=== PATIENT | female | born 1970 | race Caucasian/White ===

== ENCOUNTER 2017-01-21 21:22 | Emergency (ER) | payer MEDICAID ==
[~2017-01-21] VITALS: Ht 162.6 cm; Wt 70.8 kg
[~2017-01-21 21:22] MED LIST: CLON1TAB PO; PAX20 PO
[2017-01-21 21:34] VITALS: BP 138/81
--- NOTE | 2017-01-21 22:05 | NUR ---
46Y/F PRESENTS TO ER C/O SOB, CHEST PAIN,AND ANXIETY. PMH ANXIETY , NKA. PT [place] AND BEGAN TO FEEL 'SCARED' FROM THE READING. PT TOOK HOME RX W/ NO RELIEF AND WORSENING PAIN. PT HAS EPIGASTRIC PAIN, NON RADIATING, X1 DAY. PT DENIES TAUMA, PT FEELS AXIOUS. PT IN BED, AT BEDSIDE, ER MD NOTIFIED OF PT STATUS.
[2017-01-21] MEDS: LORazepam 1 MG TAB PO ONE (22:35)
[2017-01-21 23:22] VITALS: BP 130/78
== END 2017-01-21 23:22 | disposition home or self-care (01) ==
LOC: MED 21:22
DX: F41.9 Anxiety disorder, unspecified (principal); R03.0 Elevated blood-pressure reading, without diagnosis of hypertension; J45.909 Unspecified asthma, uncomplicated
CPT/HCPCS: 81002; 81025; 99284

== ENCOUNTER 2017-04-08 15:31 | Emergency (ER) | payer SELFPAY ==
[~2017-04-08] VITALS: Ht 152.4 cm; Wt 68.5 kg
[2017-04-08 15:38] VITALS: BP 125/80
--- NOTE | 2017-04-08 15:47 | NUR ---
PT AMBULATED TO BED 2.
--- NOTE | 2017-04-08 15:50 | NUR ---
47F BIB FAMILY C/O ANXIETY AND HEADACHE, RADIATES TO BL SHOULDERS, PRESSURE, 10/10 X 15 DAYS; PT STATES NO BLURRY VISION OR VISION CHANGES AT THIS TIME; PT STATES NO RECENT TRAUMA OR INJURY TO HEAD AT THIS TIME; PT AA&OX4, PERRLA, BL LUNG SOUNDS CLEAR, RR EVEN/UNLABORED, SKIN IS WARM/DRY/INTACT WITH EVEN AND STEADY GAIT; PT STATES NO N/V/D AT THIS TIME; PT RESTING IN BED WITH HOB ELEVATED AND IN LOWEST POSITION; POSITIONED FOR COMFORT; ER MD MADE AWARE OF STATUS.WILL CONTINUE TO MONITOR.
[2017-04-08 17:08] LABS: APPEARANCE,URINE CLEAR (CLEAR); BILIRUBIN,URINE NEGATIVE (NEGATIVE); BLOOD, URINE TRACE-I (NEGATIVE); COLOR,URINE YELLOW (YELLOW); LEUKOCYTE ESTERASE ,URINE NEGATIVE (NEGATIVE); NITRITE, URINE NEGATIVE (NEGATIVE); PH,URINE 6.5 (5.0-9.0); UGLUCOSE NEGATIVE (NEGATIVE)
[2017-04-08] MEDS: KETOROLAC 60 MG/2 ML VIAL IM ONE (17:17)
[2017-04-08 18:14] VITALS: BP 121/78
--- NOTE | 2017-04-08 18:14 | NUR ---
Patient discharged with v/s stable by ER MD Dr. Blake. Written and verbal after care instructions given and explained. Patient verbalized understanding. Ambulatory with steady gait. All questions addressed prior to discharge. Advised to follow up with PMD.
== END 2017-04-08 18:14 | disposition home or self-care (01) ==
LOC: MED 15:31
DX: G44.209 Tension-type headache, unspecified, not intractable (principal); J45.909 Unspecified asthma, uncomplicated; Z79.899 Other long term (current) drug therapy
CPT/HCPCS: 81003; 96372; 99283; J1885; C1758

== ENCOUNTER 2017-07-23 00:40 | Emergency (ER) | payer SELFPAY ==
[~2017-07-23] VITALS: Ht 152.4 cm; Wt 68.0 kg
[2017-07-23 00:41] VITALS: BP 131/83
--- NOTE | 2017-07-23 00:55 | NUR ---
TO ER BED 2
--- NOTE | 2017-07-23 00:57 | NUR ---
47 YO F TO ER WITH C/O OF HEADACHE AND EIPGASTRIC PAIN X 2DAYS. PT STATES 10/10 HEADACH PAIN AND 4/10 EPIGASTRIC PAIN. PT STATES PRESSURE. PERRLA, DENIES N/V/D; BS PRESENT AND ACTIVE, SKIN IS PINK/WARM/DRY; AAOX4 WITH EVEN AND STEADY GAIT; LUNGS CLEAR BL; HR EVEN AND REGULAR; PT DENIES ANY FEVER, CP, SOB, OR COUGH AT THIS TIME; PATIENT STATES PAIN OF 10/10 AT THIS TIME; VSS; PATIENT POSITIONED FOR COMFORT; HOB ELEVATED; BEDRAILS UP X2; BED DOWN. ER MD MADE AWARE OF PT STATUS.
--- NOTE | 2017-07-23 01:20 | NUR ---
PT APPERS TO BE SLEEPING IN NO APPARENT DISTRESS, WITH FAMILY AT BEDSIDE. WILL CONTINUE TO MONITOR.
[2017-07-23] MEDS: NACL 0.9% 1,000 ML IV ONE (01:31)
[2017-07-23 01:38] LABS: BASOPHILS % (AUTO) 0.6 % (0.0-2.0); EOSINOPHILS # (AUTO) 0.1 K/uL (0-0.4); EOSINOPHILS % (AUTO) 1.7 % (0.0-4.0); HEMATOCRIT 31.2 % (36-48); HEMOGLOBIN 9.4 g/dL (12.0-16.0); LYMPHOCYTES # (AUTO) 1.6 K/uL (2.5-16.5); LYMPHOCYTES % (AUTO) 25.6 % (20.5-51.1); MEAN CORPUSCULAR HEMOGLOBIN 20 pg (27-31); MEAN CORPUSCULAR HGB CONC 30 g/dL (33-37); MEAN CORPUSCULAR VOLUME 66.5 fL (80-94); MONOCYTES # (AUTO) 0.5 K/uL (0.8-1.0); MONOCYTES % (AUTO) 8.4 % (1.7-9.3); NEUTROPHILS # (AUTO) 3.9 K/uL (1.8-7.7); NEUTROPHILS % (AUTO) 63.7 % (42.2-75.2); PLATELET COUNT (AUTO) 296 K/uL (140-450); RED CELL DISTRIBUTION WIDTH 19.1 % (11.6-13.7); WHITE BLOOD COUNT (AUTO) 6.2 K/uL (4.8-10.8)
[2017-07-23 01:39] LABS: APPEARANCE,URINE CLEAR (CLEAR); BILIRUBIN,URINE NEGATIVE (NEGATIVE); BLOOD, URINE 2+ (NEGATIVE); COLOR,URINE YELLOW (YELLOW); LEUKOCYTE ESTERASE ,URINE NEGATIVE (NEGATIVE); NITRITE, URINE NEGATIVE (NEGATIVE); UGLUCOSE NEGATIVE (NEGATIVE)
[2017-07-23 01:55] LABS: ALBUMIN 3.1 g/dL (3.4-5.0); ANION GAP 9.9 (8-16); CARBON DIOXIDE 27.9 mmol/L (21-32); CREATININE 0.6 mg/dL (0.6-1.3); POTASSIUM 3.8 mmol/L (3.5-5.1); TOTAL BILIRUBIN 0.4 mg/dL (0.0-1.0)
[2017-07-23 01:58] LABS: RBC,URINE 0-5 (RARE) /HPF (0-5); URINE AMORPHOUS URATE 1+ /HPF (None Seen); WBC,URINE 0-5 (RARE) /HPF (0-5)
--- NOTE | 2017-07-23 02:55 | NUR ---
ULTRASOUND AT BEDSIDE
--- NOTE | 2017-07-23 03:25 | NUR ---
ALL RESULTS BACK AND NOTED BY ERMD AND FOR D/C.
[2017-07-23 03:39] VITALS: BP 121/78
--- NOTE | 2017-07-23 03:39 | NUR ---
Patient discharged with v/s stable. Written and verbal after care instructions given and explained, BY DR. AG. Patient verbalized understanding. Ambulatory with steady gait. All questions addressed prior to discharge. Advised to follow up with PMD.
== END 2017-07-23 03:35 | disposition home or self-care (01) ==
LOC: MED 00:40
DX: R07.9 Chest pain, unspecified (principal); K30 Functional dyspepsia; F41.9 Anxiety disorder, unspecified
CPT/HCPCS: 36415; 76705; 80053; 81001; 81025; 82150; 83690; 85025; 99285; J7030; Q0092; 96360

== ENCOUNTER 2017-11-24 21:53 | Emergency (ER) | payer SELFPAY ==
[~2017-11-24] VITALS: Ht 152.4 cm; Wt 68.0 kg
[2017-11-24 21:55] VITALS: BP 123/80
--- NOTE | 2017-11-24 22:00 | NUR ---
TO LOBBY A/W BED, ZAMZAM JEREZ NOTED
--- NOTE | 2017-11-24 22:10 | NUR ---
PATIENT PRESENTS TO ED WITH C/O EPIGASTRIC PAIN X 2 DAYS WITH N/V. ABDOMEN IS SOFT, NON TENDER. SKIN IS PINK/WARM/DRY; AAOX4 WITH EVEN AND STEADY GAIT; LUNGS CLEAR BL; HR EVEN AND REGULAR; PT DENIES ANY FEVER, CP, SOB, OR COUGH AT THIS TIME; PATIENT STATES PAIN OF 8/10 AT THIS TIME; VSS; PATIENT POSITIONED FOR COMFORT; HOB ELEVATED; BEDRAILS UP X2; BED DOWN.
--- NOTE | 2017-11-25 00:10 | NUR ---
PT RESTING WITH VSS. WILL CONITINUE TO MONITOR.
[2017-11-25] MEDS ORDERED: ONDANSETRON 4 MG ODT PO ONE (00:25)
[2017-11-25] MEDS ORDERED: DICYCLOMINE HCL LIQUID 20 MG, ALUMINUM HYD/MAG/SIMETHICONE 30 ML, LIDOCAINE VISCOUS 2% ... PO ONE ×3 (00:25)
[2017-11-25] MEDS ORDERED: FAMOTIDINE 20 MG TAB PO ONE (00:25)
[2017-11-25 01:29] LABS: HEMOGLOBIN 9.1 g/dL (12.0-16.0); MEAN CORPUSCULAR HEMOGLOBIN 20 pg (27-31)
--- NOTE | 2017-11-25 01:39 | NUR ---
AWAITING DISCHARGE ORDERS AT THIS TIME.
[2017-11-25 01:40] LABS: MEAN CORPUSCULAR HGB CONC 30 g/dL (33-37); PLATELET COUNT (AUTO) 279 K/uL (140-450); RED BLOOD CELL COUNT(AUTO) 4.62 MIL/uL (4.20-5.40); RED CELL DISTRIBUTION WIDTH 19.9 % (11.6-13.7); WHITE BLOOD COUNT (AUTO) 13.6 K/uL (4.8-10.8)
[2017-11-25 01:42] LABS: CARBON DIOXIDE 27.8 mmol/L (21-32); CREATININE 0.7 mg/dL (0.6-1.3); POTASSIUM 3.8 mmol/L (3.5-5.1)
[2017-11-25 01:49] LABS: ALBUMIN 3.3 g/dL (3.4-5.0); TOTAL BILIRUBIN 0.3 mg/dL (0.0-1.0)
[2017-11-25 01:52] LABS: LYMPHOCYTES % (MANUAL) 9 % (20-46); MONOCYTES % (MANUAL) 4 % (5-12)
--- NOTE | 2017-11-25 01:52 | NUR ---
Patient discharged with v/s stable. Written and verbal after care instructions given and explained. Patient alert, oriented and verbalized understanding of instructions. Ambulatory with steady gait. All questions addressed prior to discharge. ID band removed. Patient advised to follow up with PMD. Rx of PEPCID, REGLAN given. Patient educated on indication of medication including possible reaction and side effects. Opportunity to ask questions provided and answered.
[2017-11-25 02:08] VITALS: BP 109/65
[2017-11-25 04:01] LABS: APPEARANCE,URINE CLEAR (CLEAR); BILIRUBIN,URINE NEGATIVE (NEGATIVE); BLOOD, URINE 2+ (NEGATIVE); COLOR,URINE YELLOW (YELLOW); LEUKOCYTE ESTERASE ,URINE NEGATIVE (NEGATIVE); NITRITE, URINE NEGATIVE (NEGATIVE); PH,URINE 6.5 (5.0-9.0); UGLUCOSE NEGATIVE (NEGATIVE)
[2017-11-25 04:19] LABS: RBC,URINE 0-5 (RARE) /HPF (0-5); WBC,URINE 0-5 (RARE) /HPF (0-5)
== END 2017-11-25 01:52 | disposition home or self-care (01) ==
LOC: MED 21:53
DX: K21.9 Gastro-esophageal reflux disease without esophagitis (principal); R11.2 Nausea with vomiting, unspecified; Z79.899 Other long term (current) drug therapy
CPT/HCPCS: 36415; 80053; 81001; 83690; 85025; 99284; S0119

== ENCOUNTER 2019-05-27 00:59 | Emergency (ER) | payer SELFPAY ==
[~2019-05-27] VITALS: Ht 165.1 cm; Wt 65.8 kg
[2019-05-27 01:03] VITALS: BP 127/66
--- NOTE | 2019-05-27 01:08 | NUR ---
PT TAKEN TO BED 7
--- NOTE | 2019-05-27 01:12 | NUR ---
CHEST PAIN UNPON INSPIRATION AND EXPIRATION IS NON-RADIATING; CHEST PAIN IS FELT WHEN PT COUGHS.
--- NOTE | 2019-05-27 01:12 | NUR ---
49 Y/O FEMALE C/O NONPRODUCTIVE DRY COUGH X 3 DAYS. PT DENIES ANY TRAUMA. PT DENIES SOB/DIFFICULTY BREATHING; AIRWAY PATENT, LUNG SOUND CLEAR BILATERALLY UPON INSPIRATION AND EXPIRATION; RR 18 EVEN AND UNLABORED AND O2 SAT 99% ROOM AIR. UPON INSPIRATION/EXPIRATION PT STATES SHE HAS CHEST PAIN AND UPPER BILATERAL SHOULDER PAIN 9/10. UPON AUSCULATION OF HEART, S1/S2 PRESENT, CAP REFILL < 3 SECS. PT HAS NOT TAKEN ANY OTC FOR PAIN. DENIES N/V/D; SKIN IS PINK/WARM/DRY; AAOX4 WITH EVEN AND STEADY GAIT; PT STATES FELT WARM AT HOME BUT DID NOT TAKE HER TEMPERATURE. IN TRIAGE TEMP WAS 98.5. VSS; PATIENT POSITIONED FOR COMFORT; HOB ELEVATED; BEDRAILS UP X1; BED DOWN AND WHEELS LOCKED. PT PLACED INTO GOWN. ER MD MADE AWARE OF PT STATUS. PT DENIES TAKING ANY PAIN MEDICATION TODAY OR YESTERDAY. MEDICAL HX: ANXIETY NKA
--- NOTE | 2019-05-27 01:15 | NUR ---
E AT BEDSIDE EXAMINING PT
--- NOTE | 2019-05-27 01:45 | NUR ---
PT RESTING IN POSITON OF COMFORT, BED LOW AND WHEELS LOCKED, 2 SIDERAILS UP, VSS. WILL CONTINUE TO MONITOR.
--- NOTE | 2019-05-27 01:59 | NUR ---
XR AT BEDSIDE.
[2019-05-27] MEDS ORDERED: ACETAMINOPHEN EXTRA STRENGTH 500 MG TAB PO ONE (02:30)
[2019-05-27 02:50] VITALS: BP 98/64
== END 2019-05-27 02:50 | disposition home or self-care (01) ==
LOC: MED 00:59
DX: J06.9 Acute upper respiratory infection, unspecified (principal)
CPT/HCPCS: 71045; 99283; Q0092

== ENCOUNTER 2023-02-07 23:38 | Emergency (ER) | payer MEDICAID ==
[~2023-02-07] VITALS: Ht 154.9 cm; Wt 73.5 kg
[2023-02-07 23:53] VITALS: BP 121/76; PULSE 110; RESP 18; TEMP 101.6; O2SAT 98
[2023-02-08] MEDS ORDERED: IBUPROFEN 800 MG TAB ONE
[2023-02-08] MEDS ORDERED: IBUPROFEN 800 MG TAB PO ONE
[2023-02-08 00:29] LABS: FLU A ANTIGEN negative (NEGATIVE); FLU B ANTIGEN NEGATIVE (NEGATIVE)
[2023-02-08] MEDS ORDERED: ACETAMINOPHEN EXTRA STRENGTH 500 MG TAB PO ONE (02:55)
[2023-02-08 04:04] LABS: APPEARANCE,URINE CLEAR (CLEAR); BILIRUBIN,URINE NEGATIVE (NEGATIVE); BLOOD, URINE 2+ (NEGATIVE); COLOR,URINE YELLOW (YELLOW); LEUKOCYTE ESTERASE ,URINE NEGATIVE (NEGATIVE); NITRITE, URINE NEGATIVE (NEGATIVE); PROTEIN,URINE NEGATIVE (NEGATIVE); UGLUCOSE NEGATIVE (NEGATIVE); UROBILINOGEN,URINE 0.2 EU/dL (0.2 - 1)
[2023-02-08 04:09] LABS: BACTERIA,URINE FEW /HPF (None Seen); MUCUS,URINE None Seen /LPF (None Seen); SQUAMOUS EPITHELIAL CELL,UR 0-3 (FEW) /LPF (0-3 (FEW)); WBC,URINE 0-5 /HPF (0-5)
[2023-02-08] MEDS ORDERED: NAPR-54 PO (05:25)
[2023-02-08] MEDS ORDERED: ACET-10509 PO (05:25)
[2023-02-08 05:45] VITALS: BP 115/70; PULSE 100; RESP 18; TEMP 99.6; O2SAT 98
== END 2023-02-08 05:45 | disposition home or self-care (01) ==
LOC: MED 23:38
DX: B34.9 Viral infection, unspecified (principal); J06.9 Acute upper respiratory infection, unspecified; Z20.822 Contact with and (suspected) exposure to COVID-19; Z79.899 Other long term (current) drug therapy; Z79.1 Long term (current) use of non-steroidal anti-inflammatories (NSAID)
CPT/HCPCS: 71045; 81001; 87426; 87804; 99284; Q0092

== ENCOUNTER 2023-02-10 03:01 | Emergency (ER) | payer MEDICAID ==
[~2023-02-10] VITALS: Ht 152.4 cm; Wt 73.0 kg
[~2023-02-10 03:01] MED LIST changes: +ACET-10509 PO; +NAPR-54 PO
[2023-02-10 03:50] VITALS: BP 105/69; PULSE 93; RESP 18; TEMP 99.5; O2SAT 100
== END 2023-02-10 06:22 | disposition left against medical advice (07) ==
LOC: MED 03:01
DX: R07.9 Chest pain, unspecified (principal); Z53.20 Procedure and treatment not carried out because of patient's decision for unspecified reasons
CPT/HCPCS: 99281